=== PATIENT | male | born 1980 | race Two or more races ===

== ENCOUNTER 2017-07-25 20:32 | Emergency (ER) | payer SELFPAY ==
[~2017-07-25] VITALS: Ht 182.9 cm; Wt 97.5 kg
[2017-07-25 21:22] LABS: Basophils # (auto) 0.1 uL; Basophils % (auto) 0.7 % (0.0-2.0); Eosinophils # (auto) 0.1 uL; Hematocrit 46.8 % (41.0-53.0); Hemoglobin 15.7 g/dL (13.5-17.5); Lymphocytes # (auto) 1.7 uL; Lymphocytes % (auto) 20.5 % (10.0-50.0); Mean Corpuscular Hemoglobin 31.6 pg (28.0-32.0); Mean Corpuscular Hgb Conc. 33.5 g/dL (32.0-36.0); Mean Corpuscular Volume 94.2 fL (80.0-100.0); Mean Platelet Volume 7.5 fL (6.9-10.8); Monocytes # (auto) 0.6 uL; Monocytes % (auto) 7.6 % (0.0-12.0); Neutrophils # (auto) 5.7 uL; Neutrophils % (auto) 70.2 % (37.0-80.0); Nucleated Red Blood Cells % 0.2 %; Platelet Count (auto) 279 10^3/uL (140-450); Red Cell Distribution Width 13.4 % (11.8-14.3); White Blood Cell 8.1 10^3/uL (4.4-10.8)
[2017-07-25 21:40] LABS: Albumin 3.6 g/dL (3.4-5.0); Anion Gap 8 (5-15); Aspartate Aminotransferase 21 U/L (15-37); BUN/Creatinine Ratio 13.9; Blood Urea Nitrogen 15 mg/dL (7-18); Calcium 8.1 mg/dL (8.5-10.1); Carbon Dioxide 26 mmol/L (21-32); Chloride 108 mmol/L (98-107); GFR African American 99 mL/min; GFR Non-African American 82 mL/min; Glucose 122 mg/dL (74-106); Potassium 3.9 mmol/L (3.5-5.1); Sodium 142 mmol/L (136-145)
[2017-07-25 21:45] LABS: Alkaline Phosphatase 83 U/L (45-117); Bilirubin, Total 0.4 mg/dL (0.2-1.0); Total Protein 7.6 g/dL (6.4-8.2)
[2017-07-26] MEDS ORDERED: DONNATAL 5ml ORAL Elix (BELLADONNA ALK-PHENOBARB) PO ONE (00:45)
[2017-07-26] MEDS ORDERED: ALUM & MAG HYDROX-SIMETH LIQ(MAALOX) 30 ML PO ONE (00:45)
[2017-07-26] MEDS ORDERED: LIDOCAINE VISCOUS 2% 15ML UD PO ONE (00:45)
[2017-07-26 00:55] VITALS: BP 128/92
== END 2017-07-26 01:40 | disposition home or self-care (01) ==
LOC: ER 20:36
DX: K21.9 Gastro-esophageal reflux disease without esophagitis (principal); E78.5 Hyperlipidemia, unspecified
CPT/HCPCS: 36415; 80053; 84484; 85025

== ENCOUNTER 2019-05-04 19:02 | Emergency (ER) | payer SELFPAY ==
[~2019-05-04] VITALS: Ht 180.3 cm; Wt 108.9 kg
[2019-05-04 19:50] LABS: Basophils # (auto) 0.1 uL; Eosinophils # (auto) 0.1 uL; Eosinophils % (auto) 0.7 % (0.0-7.0); Hematocrit 45.7 % (41.0-53.0); Hemoglobin 15.1 g/dL (13.5-17.5); Lymphocytes # (auto) 2.5 uL; Lymphocytes % (auto) 26.7 % (10.0-50.0); Mean Corpuscular Hemoglobin 30.8 pg (28.0-32.0); Mean Corpuscular Hgb Conc. 33.1 g/dL (32.0-36.0); Mean Corpuscular Volume 93.1 fL (80.0-100.0); Monocytes # (auto) 0.7 uL; Neutrophils # (auto) 6.1 uL; Neutrophils % (auto) 64.6 % (37.0-80.0); Platelet Count (auto) 311 10^3/uL (140-450); Red Blood Cells 4.91 10^6/uL (4.5-5.90); Red Cell Distribution Width 13.6 % (11.8-14.3); White Blood Cell 9.4 10^3/uL (4.4-10.8)
[2019-05-04 20:08] LABS: Albumin 3.8 g/dL (3.4-5.0); Calcium 8.9 mg/dL (8.5-10.1); Potassium 3.9 mmol/L (3.5-5.1)
[2019-05-04 20:11] LABS: Urine Bacteria NONE SEEN /hpf (None Seen); Urine Blood Negative /uL (Negative); Urine Mucus FEW (None Seen); Urine Specific Gravity 1.027 (1.001-1.035); Urine WBC 2 /hpf (0 - 3)
[2019-05-04 20:11] LABS: BUN/Creatinine Ratio 13.8; Bilirubin, Total 0.4 mg/dL (0.2-1.0); Total Protein 8.2 g/dL (6.4-8.2)
[2019-05-05] MEDS ORDERED: IOHEXOL 300 MG/ML 100ML BOTTLE IJ ONE (02:21)
[2019-05-05 03:46] VITALS: BP 131/89
== END 2019-05-05 04:17 | disposition home or self-care (01) ==
LOC: ER 19:06
DX: K63.89 Other specified diseases of intestine (principal); E78.5 Hyperlipidemia, unspecified
CPT/HCPCS: 36415; 74177; 80053; 81001; 83690; 85025; 99284; Q9967

== ENCOUNTER 2022-01-06 17:02 | Emergency (ER) | payer MEDICAID ==
[~2022-01-06] VITALS: Ht 180.3 cm; Wt 108.9 kg
[2022-01-06 19:08] LABS: Basophils # (auto) 0.1 10 ^3/uL (0-0.2); Basophils % (auto) 0.7 % (0.0-2.0); Eosinophils # (auto) 0 10 ^3/uL (0-0.8); Eosinophils % (auto) 0.5 % (0.0-7.0); Hematocrit 44.8 % (41.0-53.0); Hemoglobin 16.1 g/dL (13.5-17.5); Lymphocytes % (auto) 20.3 % (10.0-50.0); Mean Corpuscular Hemoglobin 32.2 pg (28.0-32.0); Mean Corpuscular Volume 89.6 fL (80.0-100.0); Monocytes # (auto) 0.6 10 ^3/uL (0-1.3); Monocytes % (auto) 6.2 % (0.0-12.0); Neutrophils # (auto) 7.1 10 ^3/uL (1.6-8.6); Neutrophils % (auto) 72.3 % (37.0-80.0); Nucleated Red Blood Cells % 0.1 %; Red Cell Distribution Width 12.9 % (11.8-14.3); White Blood Cell 9.8 10^3/uL (4.4-10.8)
[2022-01-06 19:19] LABS: Albumin 3.9 g/dL (3.4-5.0); BUN/Creatinine Ratio 10.3; Calcium 9.1 mg/dL (8.5-10.1); Potassium 3.7 mmol/L (3.5-5.1)
[2022-01-06 19:22] LABS: Bilirubin, Total 0.4 mg/dL (0.2-1.0); Total Protein 8.6 g/dL (6.4-8.2)
[2022-01-06] MEDS ORDERED: MICO2CRE60 EX (20:44)
[2022-01-06] MEDS ORDERED: HYD1TP TOP (20:44)
[2022-01-06 20:52] LABS: Urine Bacteria FEW /hpf (None Seen); Urine Blood Negative /uL (Negative); Urine Specific Gravity 1.008 (1.001-1.035); Urine WBC 13 /hpf (0 - 3)
[2022-01-06 22:21] VITALS: BP 130/68
[2022-01-06 22:38] LABS: Hepatitis B Surface Antibody Negative (Negative)
[2022-01-06] MEDS ORDERED: CEPH500T PO (22:57)
== END 2022-01-06 22:30 | disposition home or self-care (01) ==
LOC: ER 17:02
DX: N47.1 Phimosis (principal); N39.0 Urinary tract infection, site not specified; R73.9 Hyperglycemia, unspecified; E78.5 Hyperlipidemia, unspecified; Z79.899 Other long term (current) drug therapy
CPT/HCPCS: 36415; 80053; 81001; 85025; 86703; 86706; 86803; 87340

== ENCOUNTER 2022-09-14 00:10 | Emergency (ER) | payer MEDICAID ==
[~2022-09-14] VITALS: Ht 180.3 cm; Wt 104.5 kg
[~2022-09-14 00:10] MED LIST: CEPH500T PO; HYD1TP TOP; MICO2CRE60 EX
[2022-09-14 01:45] VITALS: BP 122/90
[2022-09-14 02:22] LABS: Urine Bacteria NONE SEEN /hpf (None Seen); Urine Blood 1+ /uL (Negative); Urine Mucus FEW (None Seen); Urine Specific Gravity 1.024 (1.001-1.035); Urine WBC 98 /hpf (0 - 3)
== END 2022-09-14 08:18 | disposition left against medical advice (07) ==
LOC: ER 00:10
DX: R33.9 Retention of urine, unspecified (principal); Z53.21 Procedure and treatment not carried out due to patient leaving prior to being seen by health care provider
CPT/HCPCS: 81001

== ENCOUNTER 2023-05-16 15:09 | Emergency (ER) | payer MEDICAID ==
[~2023-05-16] VITALS: Ht 180.3 cm; Wt 109.0 kg
[2023-05-16 15:46] LABS: Basophils # (auto) 0.1 10 ^3/uL (0-0.2); Basophils % (auto) 0.9 % (0.0-2.0); Eosinophils # (auto) 0 10 ^3/uL (0-0.8); Eosinophils % (auto) 0.4 % (0.0-7.0); Hematocrit 45.9 % (41.0-53.0); Hemoglobin 15.5 g/dL (13.5-17.5); Lymphocytes # (auto) 2.7 10 ^3/uL (0.4-5.4); Lymphocytes % (auto) 23.7 % (10.0-50.0); Mean Corpuscular Hgb Conc. 33.7 g/dL (32.0-36.0); Mean Corpuscular Volume 91.9 fL (80.0-100.0); Monocytes # (auto) 0.5 10 ^3/uL (0-1.3); Monocytes % (auto) 4.8 % (0.0-12.0); Neutrophils # (auto) 8.1 10 ^3/uL (1.6-8.6); Neutrophils % (auto) 70.2 % (37.0-80.0); Nucleated Red Blood Cells % 0.2 %; Red Cell Distribution Width 13.2 % (11.8-14.3); White Blood Cell 11.5 10^3/uL (4.4-10.8)
[2023-05-16 15:51] LABS: Urine Bacteria NONE SEEN /hpf (None Seen); Urine Blood Negative /uL (Negative); Urine Clarity Clear (Clear); Urine Color Yellow (Yellow); Urine Mucus FEW (None Seen); Urine Protein, UAD TRACE (Negative); Urine Specific Gravity 1.027 (1.001-1.035); Urine Urobilinogen Normal (Negative); Urine WBC 1 /hpf (0 - 3); Urine pH 5.5 (5.0-8.0)
[2023-05-16 16:06] LABS: Albumin 3.8 g/dL (3.4-5.0); Calcium 8.9 mg/dL (8.5-10.1); Potassium 3.6 mmol/L (3.5-5.1)
[2023-05-16 16:09] LABS: BUN/Creatinine Ratio 14.8 (10.0-20.0); Bilirubin, Total 0.5 mg/dL (0.2-1.0)
[2023-05-16] MEDS ORDERED: IBU600T PO (16:49)
[2023-05-16] MEDS ORDERED: KETOROLAC TROMETH 60MG/2ML VIAL IM ONE (17:00)
[2023-05-16] MEDS ORDERED: SODIUM CHLORIDE 0.9% 1,000 ML IV ONE (17:00)
[2023-05-16 17:02] VITALS: BP 155/97; PULSE 108; RESP 18; TEMP 98.2; O2SAT 98
[2023-05-16] MEDS ORDERED: ZOFR4T PO (17:13)
== END 2023-05-16 17:15 | disposition home or self-care (01) ==
LOC: ER 15:09
DX: R10.31 Right lower quadrant pain (principal); E78.5 Hyperlipidemia, unspecified; I10 Essential (primary) hypertension; Z88.6 Allergy status to analgesic agent
CPT/HCPCS: 36415; 74176; 80053; 81001; 83690; 85025; 96372; 99285; J1885